=== PATIENT | male | born 1960 | race Caucasian/White ===

== ENCOUNTER 2023-03-02 10:38 | Outpatient (REF) | payer BC, SELFPAY ==
[2023-03-02 11:48] LABS: Prothrombin Time 12.6 SEC (11.1-13.3)
[2023-03-02 11:51] LABS: Partial Thromboplastin Time 30.6 SEC (26.0-36.4)
[2023-03-02 12:46] LABS: Alanine Aminotransferase 16 U/L (0-40); Albumin Level 4.8 g/dL (3.5-5.0); Alkaline Phosphatase 75 U/L (39-117); Aspartate Amino Transferase 21 U/L (5-37); Bilirubin Direct 0.3 mg/dL (0.0-0.5); Bilirubin Total 0.8 mg/dL (0.0-1.0); Total Protein 7.5 g/dL (6.5-8.0)
[2023-03-02 12:48] LABS: HBS Num1 0.09 mIU/mL (0-7.99); HBc Num1 0.13 S/CO (0.00-0.79); HBsAGNum1 0.61 S/CO (0.00-0.99); Hepatitis A Antibody IgM 0.47 Index (0-0.79); Hepatitis B Core Antibody Nonreactive (Nonreactive); Hepatitis B Surface Antigen Negative (Negative); ~HepC Num1 14.08 S/CO (0.00-0.79); ~Hepatitis A Antibody IgM Nonreactive (Nonreactive); ~Hepatitis B Surface Antibody NONREACTIVE (Nonreactive); ~Hepatitis C Antibody Reactive (Nonreactive)
[2023-03-04 11:49] LABS: Alpha Fetoprotein 2.4 ng/mL (<6.1)
== END 2023-03-02 10:39 | disposition home or self-care (01) ==
LOC: HO.HHCL 10:38
PROVIDERS: Visit Provider Registered Nurse
DX: K74.60 Unspecified cirrhosis of liver (principal); D69.6 Thrombocytopenia, unspecified
CPT/HCPCS: 36415; 80076; 82105; 85610; 85730; 86704; 86706; 86709; 86803; 87340

== ENCOUNTER 2023-04-13 07:41 | Outpatient (REF) | payer BC, SELFPAY ==
--- NOTE | ~2023-04-13 | US_ITS ---
EXAMINATION: US COMPLETE ABDOMEN WITH LIVER ELASTOGRAPHY CLINICAL INFORMATION: COMPARISON: None available. TECHNIQUE: Real-time imaging of the abdominal viscera. Noninvasive ultrasound liver fibrosis assessment is performed using Manav ElastPQ point quantification shear wave elastography (2D-SWE) with a C5-2 MHz transducer. Multiple elastography samples are obtained. FINDINGS: PANCREAS: Normal. The visualized pancreatic head and body are normal in appearance. The remainder of the pancreas is obscured from visualization by the overlying bowel gas. ABDOMINAL AORTA: The visualized proximal, middle, and distal aortic segments are normal in caliber. INFERIOR VENA CAVA: Visualized portions are normal. LIVER: The liver demonstrates normal size, contour and heterogeneous, coarse echogenicity. No focal lesion or intrahepatic biliary duct dilatation. The right lobe measures 13.2 cm in length. The left lobe measures 9.3 cm in length. Portal flow is towards the liver (hepatopetal). The splenic vein is tortuous and prominent. Shear wave liver elastography median stiffness is 1.63 m/s (reference: normal median stiffness is 1.3 m/s or less). IQR/median stiffness to assess sampling precision is 0.11 (reference: good quality data set is IQR/median stiffness of 0.15 or less). GALLBLADDER: Normal. The gallbladder is physiologically distended without evidence of stones, sludge, polyps, wall thickening or pericholecystic fluid. COMMON BILE DUCT: Visualization limited. Normal in caliber measuring 0.4 cm in diameter. RIGHT KIDNEY: Normal. No hydronephrosis. No renal calculi or focal parenchymal lesions. The kidney measures 9.8 cm in maximum dimension. LEFT KIDNEY: Normal. No hydronephrosis. No renal calculi or focal parenchymal lesions. The kidney measures 10.7 cm in maximum dimension. SPLEEN: No focal finding. The spleen measures 16.1 cm in maximum dimension. FREE FLUID: None. US/US abdomen comp w elastography IMPRESSION: 1. There is generalized increase in hepatic echotexture, consistent with the provided history of cirrhosis. No focal hepatic mass or intrahepatic biliary dilatation is seen. 2. Liver elastography: In the absence of other known clinical signs, measurements rule out compensated advanced chronic liver disease. If there are known clinical signs, further testing may be needed for confirmation. 3. There is splenomegaly. REFERENCE: Society of Radiologists in Ultrasound Liver Stiffness Thresholds (2020): LIVER STIFFNESS THRESHOLDS: *Liver Stiffness equal or less than 1.3 m/s: High probability of being normal. *Liver Stiffness less than 1.7 m/s: In the absence of other known clinical signs, rules out compensated advanced chronic liver disease. *Liver Stiffness 1.7-2.1 m/s: Suggestive of compensated advanced chronic liver disease but need further test for confirmation. *Liver Stiffness over 2.1 m/s: Rules in compensated advanced chronic liver disease. *Liver Stiffness over 2.4 m/s: Suggestive of clinically significant portal hypertension. QUALITY OF DATA SET: *IQR/Median value equal or less than 0.15 implies a quality data set. *IQR/Median value over 0.15 implies a poor quality data set. SIGNIFICANT CHANGE FROM PRIOR EXAM: Significant change if liver stiffness measurement is 10% or greater from prior exam. OTHER CONSIDERATIONS: The stage of liver fibrosis may be overestimated in the setting of acute hepatitis, liver inflammation, elevated liver function tests, hepatic vascular congestion, obstructive cholestasis, non-fasting state, and infiltrative diseases such as amyloidosis and lymphoma. In some patients with NAFLD, the liver stiffness thresholds for compensated advanced chronic liver disease may be lower. In causes other than viral hepatitis and NAFLD, liver stiffness thresholds are not well established.
== END 2023-04-13 07:42 | disposition home or self-care (01) ==
LOC: HO.US 07:41
PROVIDERS: PCP Registered Nurse; Visit Provider Registered Nurse
DX: K74.60 Unspecified cirrhosis of liver (principal); D72.810 Lymphocytopenia
CPT/HCPCS: 76705; 76981

== ENCOUNTER 2023-05-02 14:10 | Outpatient (REF) | payer BC, SELFPAY ==
[2023-05-02 14:28] LABS: MANUAL DIFF FLAG NO
[2023-05-02 14:47] LABS: Basophils Percent Auto 0.3 % (0-2); Hemoglobin 14.5 g/dl (14.0-18.0); Imm Gran Abs Auto 0.02 X10*3/uL (0.00-0.03); Imm Gran Pct Auto 0.5 % (0.0-0.4); Lymphocytes Absolute Auto 0.6 X10*3/uL (1.2-4.9); Mean Corpuscular HGB Conc 33.7 g/dl (31.0-36.0); Mean Corpuscular Hemoglobin 28.7 pg (27.0-33.0); Mean Corpuscular Volume 85.1 fL (80.0-98.0); Monocytes Absolute Auto 0.3 X10*3/uL (0.1-1.2); Monocytes Percent Auto 7.8 % (2-11); Neutrophils Absolute Auto 2.9 x10*3/uL (2.0-8.3); Neutrophils Percent Auto 75.4 % (45-73); Red Blood Count 5.05 X10*6/uL (4.60-5.80); Red Cell Distribution Width 13.2 % (11.0-16.0); White Blood Count 3.9 X10*3/uL (4.8-10.8)
[2023-05-02 15:19] LABS: Platelet Count 96 X10*3/uL (160-400)
[2023-05-02 15:20] LABS: Mean Platelet Volume 9.8 fL (9.4-12.4)
[2023-05-02 15:21] LABS: Alanine Aminotransferase 16 U/L (0-40); Albumin Level 4.9 g/dL (3.5-5.0); Alkaline Phosphatase 78 U/L (39-117); Aspartate Amino Transferase 23 U/L (5-37); Bilirubin Direct 0.3 mg/dL (0.0-0.5); Bilirubin Total 0.8 mg/dL (0.0-1.0); Iron 106 mcg/dL (45-160); Percent Iron Saturation 33 % (15-50); Total Iron Binding Capacity 322 mcg/dL (228-428); Total Protein 7.6 g/dL (6.5-8.0); Unsaturated Iron Binding 216 ug/dL
[2023-05-04 17:18] LABS: HCV RNA PCR Qn <1.18 NOT DETECTED Log IU/mL (NOT DETECTED); HCV RNA PCR Qn <15 NOT DETECTED IU/mL (NOT DETECTED)
[2023-05-05 12:44] LABS: Mitochondrial Antibodies NEGATIVE (NEGATIVE)
[2023-05-05 22:23] LABS: Smooth Muscle Antibody <20 U (<20)
[2023-05-06 15:47] LABS: FIB-ALT 15 U/L (9-46); FIB-Alpha-2-Macroglobulin 351 mg/dL (106-279); FIB-Apolipoprotein A1 159 mg/dL (94-176); FIB-GGT 32 U/L (3-70); FIB-Haptoglobin 105 mg/dL (43-212); FIB-Total Bilirubin 0.7 mg/dL (0.2-1.2); Liver Fibrosis Score 0.61; Liver Fibrosis Stage F3; Nec Inflam Act Grade A0; Nec Inflam Act Score 0.08
[2023-05-07 11:49] LABS: Anti Nuclear Antibody Screen POSITIVE (NEGATIVE)
== END 2023-05-02 14:11 | disposition home or self-care (01) ==
LOC: HO.LAB 14:10
PROVIDERS: Visit Provider Internal Medicine Gastroenterology
DX: K74.60 Unspecified cirrhosis of liver (principal)
CPT/HCPCS: 36415; 80076; 81596; 83540; 85025; 86015; 86038; 86039; 86381; 87522

== ENCOUNTER 2023-05-25 11:54 | Day surgery (SDC) | payer BC, SELFPAY ==
--- NOTE | 2023-05-24 10:20 | P.CONAN_ITS ---
HPI - Anesthesia Eval Consult details Narrative: 63yo M for Upper Endoscopy Cirrhosis and Hep C [facility] Past Medical History Medical History (Updated 05/24/23 @ 08:06 by Madelyn Howard, RN) Hepatic cirrhosis Hepatitis C Surgical History Surgical History (Updated 05/24/23 @ 08:06 by Madelyn Howard, RN) History of esophagogastroduodenoscopy (EGD) Hx of hernia repair Meds Allergies Allergy/AdvReac Type Severity Reaction Status Date / Time No Known Allergies Allergy Verified 05/24/23 08:07 Home Medications Medication Instructions Recorded Confirmed Last Taken Type No Known Home Meds 05/24/23 05/24/23 Unknown History Exam Pertinent Lab Results Pertinent Lab Results: Laboratory Tests 05/02/23 14:25 WBC 3.9 L Hgb 14.5 Hct 43.0 Plt Count 96 L Narrative Narrative: US abdomen comp w elastography 03/2023 IMPRESSION: 1. There is generalized increase in hepatic echotexture, consistent with the provided history of cirrhosis. No focal hepatic mass or intrahepatic biliary dilatation is seen. 2. Liver elastography: In the absence of other known clinical signs, measurements rule out compensated advanced chronic liver disease. If there are known clinical signs, further testing may be needed for confirmation. 3. There is splenomegaly. Assessment and Plan Assessment Anesthesia Assessment: Chart Reviewed
[2023-05-25 12:06] VITALS: BMI 23.6
[2023-05-25 12:30] VITALS: BP 142/78; PULSE 76; RESP 16; TEMP 36.4; O2SAT 98
[2023-05-25] MEDS: Lactated Ringers 1,000 ML 100 ML IVCONT (12:31)
--- NOTE | 2023-05-25 12:32 | P.CONAN_ITS ---
[facility] Past Medical History Medical History Hepatic cirrhosis Hepatitis C Functional capacity: independent ambulation Family History Family history of problems with anesthesia: No Surgical History Surgical History History of esophagogastroduodenoscopy (EGD) Hx of hernia repair History of Problems with Anesthesia: No Social History Social History Patient Tobacco Use Status: Never used Tobacco Use of substances other than those prescribed or required for medical reasons: No Are you DNR?: No Advance Directives: No Advance Directives Information Provided: Yes Meds Allergies Allergy/AdvReac Type Severity Reaction Status Date / Time No Known Allergies Allergy Verified 05/25/23 12:13 Active Medications: Current Medications Lactated Ringer's (Lr) 1,000 mls @ 100 mls/hr IVCONT .Q10H ANTONETTE Last Admin: 05/25/23 12:31 Dose: 100 mls/hr Home Medications Medication Instructions Recorded Confirmed Last Taken Type No Known Home Meds 05/24/23 05/24/23 Unknown History Exam Height,Weight and Vital Signs: Height 5 ft 8 in Weight 70.534 kg Last Vital Signs Temp 97.5 F 05/25/23 12:30 Pulse 76 05/25/23 12:30 Resp 16 05/25/23 12:30 BP 142/78 H 05/25/23 12:30 Pulse Ox 98 05/25/23 12:30 O2 Del Method Room Air 05/25/23 12:30 Airway Mallampati Class: III TM Dist: >3cm Neck ROM: Full Heart: RRR Lungs: CTA Assessment and Plan Assessment Anesthesia Assessment: Anesthesia Plan Discussed Final Anesthetic Review Family History of Problems with Anesthesia: No History of Problems with Anesthesia: No ASA Class: III Final Preanesthetic Review: Meds/Allgs Chart Reviewed, Consent Obtained/Reviewed and Anes Risks/Benef Reviewed Patient Risk: Intermediate Procedure Risk: Low Anesthetic Plan Anesthetic Plan: MAC: Disposition: Standard PACU
--- NOTE | 2023-05-25 12:55 | MHC.SHP ---
Pre-Procedural Eval Section A Date of Service: 05/25/23 The patient is an INPATIENT: No Changes since office visit: No Cold of Flu in the past 2 weeks, No New Medical Problems, No Changes in Medication and No Patient answered all questions The History & Physical has been completed within 30 days and I have reviewed it.: Yes Section B Chief Complaint: Unspecified cirrhosis of liver Allergies: Allergies Allergy/AdvReac Type Severity Reaction Status Date / Time No Known Allergies Allergy Verified 05/25/23 12:13 Plan I have reviewed the history and physical and performed a pertinent physical examination on my patient. No changes have occurred unless specified. Time Spent With Patient Time: Total time managing care of this patient today ____ minutes.
[2023-05-25 13:18] VITALS: BP 115/78; PULSE 96; RESP 16; TEMP 36.3; O2SAT 97
--- NOTE | 2023-05-25 13:29 | HO.POSTANES ---
Post Anesthesia Evaluation Post Anesthesia Evaluation Date of Service: 05/25/23 Vital Signs: Vital Signs Temp Pulse Resp BP Pulse Ox O2 Del Method O2 Flow Rate 05/25/23 13:18 97.3 F 96 16 115/78 97 Simple Mask 4 05/25/23 12:30 97.5 F 76 16 142/78 H 98 Room Air Anesthesia: Monitored Mental Status: Awake Pain Control: Satisfactory Nausea/Vomiting: None Hydration: Adequate Anesthesia-Related Issues: No Anes. Related Issues
[2023-05-25 13:33] VITALS: BP 138/99; PULSE 91; RESP 16; TEMP 36.2; O2SAT 99
--- NOTE | 2023-05-25 13:50 | OP_ITS ---
DATE OF SERVICE: 05/25/2023 SURGEON: Jairo Mcdonald MD INDICATIONS: Cirrhosis. PREOPERATIVE DIAGNOSIS: POSTOPERATIVE DIAGNOSIS: PROCEDURE PERFORMED: Upper endoscopy with biopsy. ESTIMATED BLOOD LOSS: COMPLICATIONS: ANESTHESIA: Monitored anesthesia care. ASSISTANTS: SPECIMENS: DESCRIPTION OF PROCEDURE: A history and physical was performed. The risks and benefits of the procedure were explained to the patient. Informed consent was obtained. The patient was placed in the left lateral decubitus position. The Olympus video gastroscope was introduced into the esophagus, stomach, and duodenum. Examination was performed. The scope was removed. He tolerated the procedure well and was returned to the recovery area in stable condition. FINDINGS: Esophagus: There was a single grade 1 esophageal varix extending from the EG junction at 42 cm up to about 30 cm. The varix disappeared with insufflation. There were no stigmata of recent hemorrhage. Stomach: Stomach showed no evidence of masses, ulcers, or polyps. There were no gastric varices. There was no portal hypertensive gastropathy. Duodenum: The bulb and 2nd portion were normal. Antral biopsies were obtained from the stomach to evaluate for H pylori. IMPRESSION: 1. Cirrhosis. 2. Esophageal varices. RECOMMENDATION: 1. Follow up the biopsy results. 2. Repeat endoscopy for surveillance as per protocol. MD JALEN Pepe/DERRICK / [id number]
== END 2023-05-25 14:10 | disposition home or self-care (01) ==
PROVIDERS: PCP Registered Nurse; Visit Provider Internal Medicine Gastroenterology
PROC: 0DJ08ZZ Inspection of Upper Intestinal Tract, Via Natural or Artificial Opening Endoscopic (ICD-10-PCS; CPT 43235; principal; 2023-05-25 13:00)
DX: K74.60 Unspecified cirrhosis of liver (principal); I85.10 Secondary esophageal varices without bleeding; B19.20 Unspecified viral hepatitis C without hepatic coma
CPT/HCPCS: 43239; 88305; 88342; J2704

== ENCOUNTER 2023-06-22 17:48 | Outpatient (REF) | payer BC, SELFPAY | END 2023-06-22 17:49 | disposition home or self-care (01) | LOC: HO.CHCLNP 17:48 | PROVIDERS: Visit Provider Family Medicine | DX: Z11.52 Encounter for screening for COVID-19 (principal); J06.9 Acute upper respiratory infection, unspecified | CPT/HCPCS: 0241U ==

== ENCOUNTER 2024-02-16 11:57 | Outpatient (REF) | payer BC, SELFPAY ==
--- NOTE | ~2024-02-16 | CT_ITS ---
EXAMINATION: CT ABDOMEN AND PELVIS WITH CONTRAST CLINICAL INFORMATION: Abdominal pain. COMPARISON: Abdominal ultrasound 04/13/2023. TECHNIQUE: Multidetector volumetric images were obtained from the superior aspect of the liver through the pubic symphysis following administration 85 mL of Omnipaque 350 intravenous contrast. Sagittal and coronal reformatted images were obtained on the technologist's workstation. Oral contrast: Yes This CT examination was performed using dose optimization techniques as appropriate, variously including the following: *Automated exposure control *Adjustment of mA and/or kV according to patient size (this includes techniques or standardized protocols for targeted exams where dose is matched to indication/reason for exam; i.e. extremities or head) *Use of iterative reconstruction technique DLP: 317 mGy-cm FINDINGS: LUNG BASES: No suspicious lung nodules. LIVER, GALLBLADDER, AND BILIARY TREE: Cirrhotic appearing liver. No discrete liver mass on single phase imaging. No biliary ductal dilatation. The gallbladder is unremarkable. PANCREAS: No discrete pancreatic mass. No pancreatic ductal dilatation. SPLEEN: The spleen is enlarged measuring 13.7 cm. ADRENAL GLANDS: No adrenal mass. KIDNEYS AND URETERS: The kidneys are normal in size, shape, and attenuation. No hydronephrosis, hydroureter, or calculi seen. No perinephric stranding. BLADDER: Unremarkable. GASTROINTESTINAL TRACT: The small and large bowel are normal in caliber. No acute inflammatory changes are seen. Mild colonic diverticula. ABDOMINAL WALL: Relatively symmetric bilateral soft tissue masses just above the inguinal canals bilaterally and deep to the abdominal wall. These measure 2.5 x 2.0 x 1.8 cm on the right and 2.6 x 1.9 x 2.1 cm on the left. LYMPH NODES: No demonstrable adenopathy. VASCULAR: The portal vein is patent. The umbilical vein is recanalized. The splenic vein is dilated. There are gastroesophageal varices. The abdominal aorta is normal in caliber. 2.6 cm infrarenal abdominal aortic aneurysm, 1.5X the proximal normal segment of 1.8 cm. PELVIC VISCERA: Unremarkable. OSSEOUS STRUCTURES: Degenerative changes in the spine. No destructive osseous lesions. CT/CT abdomen pelvis w IV con IMPRESSION: Relatively symmetric bilateral soft tissue masses just above the inguinal canals bilaterally. Correlate clinically for any history of inguinal hernia repair or other surgery as this could potentially be a foreign body reaction. No surgical clips or obvious surgical seen. The symmetry would favor a nonneoplastic process, though one cannot be entirely excluded. Clinical correlation is necessary. If there is no clinical explanation for the imaging findings, tissue diagnosis is recommended. Cirrhosis with portal hypertension, splenomegaly, gastroesophageal varices. Second opinion from Dr. Hemal Ho, who concurs 12/15 PM 02/17/2024. Fleischner guidelines were followed. Electronically signed by: Marshal Hubbard MD 02/17/2024 12:16 PM EDT
[2024-02-16] MEDS: Barium Sulfate Oral (Vanilla) 450 ML ORAL.SUSP 900 ML PO (13:51)
[2024-02-16] MEDS: iohexoL 350 MG/ML 100 ML INFUS..BTL 85 ML IV (13:52)
[2024-02-16 14:39] LABS: Creatinine POC 0.7 mg/dL (0.5-1.4); GFR POC > 60
== END 2024-02-16 11:58 | disposition home or self-care (01) ==
LOC: HO.CT 11:57
PROVIDERS: PCP Registered Nurse; Visit Provider Registered Nurse
DX: R10.9 Unspecified abdominal pain (principal)
CPT/HCPCS: 74177; 82565; Q9967

== ENCOUNTER 2025-03-01 09:37 | Outpatient (REF) | payer BC, SELFPAY ==
--- OUTSIDE RECORDS SUMMARY | 2025-03-01 08:30 | XMS_ITS | Encounter Summary ---
Author Organization [employer] Address [address] [facility] [place] [id number] Care Team Providers Care Developmental Writing Instructor Name Role Phone Kim Ragland Primary Care Provider Jairo Mcdonald MD Unavailable [phone] Encounter Details Date Type Department Care Team (Late st Contact Info) Description 03/01/2025 8:30 AM EDT Office Visit [facility]S [address] [place] [address] Kim Ragland FNP [address] [place] [address] Lymphopenia (Primary Dx); Healthcare maintenance Social History Tobacco Use Types Packs/Day Years Used Date Smoking Tobacco: Former Cigarettes Passive Smoke Exposure: Never Smokeless Tobacco: Never Alcohol Use Standard Drinks/Week Comments Never 0 (1 standard drink = 0.6 oz pur e alcohol) Depression Answer Date Recorded Patient Health Questionnaire-9 Score 1 03/01/2025 Patient Health Questionnaire-9 Score 1 03/01/2025 Last PHQ-9: Questionnaire Data Not on file 0 03/01/2025 Housing Stability Answer Date Recorded What is your housing situation today? I have zhane shah 01/02/[address] you li ve. Do you have problems with any of the following? None of the above 01/02/2024 Food Insecurity Answer Date Recorded Within the past 12 months, y ou worried that your food would run out before you got money to buy more: Never True 01/02/2024 Within the past 12 months,th e food you bought just didn't last and you didn't have enough money to get more: Never True Transportation Answer Date Recorded In the past 12 months, has l ack of transportation kept you from medical appts, meetings, work or from getting things needed for daily living? No 01/02/2024 Utilities Answer Date Recorded In the past 12 months, has t he electric, gas, oil or water company threatened to shut off services in your home? No 01/02/2024 Depression Answer Date Recorded Patient Health Questionnaire-2 Score 0 03/01/2025 Internet Access Answer Date Recorded Internet Access Q1 Yes 02/17/2024 Internet Access Q2 Not on file 02/17/2024 Sex and Gender Information Value Date Recorded Sex Assigned at Male 09/24/2022 12:50 PM EDT Legal Sex Male 12:50 PM EDT Gender Identity Male 09/24/2022 12:50 PM EDT Sexual Orientation Straight 09/24/2022 12 :50 PM EDT documented as of this encounter Last Filed Vital Signs Vital Sign Reading Time Taken Comments Blood Pressure 140/80 03/01/2025 8:42 AM EDT Pulse 64 03/01/2025 8:42 AM EDT Temperature 36.6 C (97.9 F) 03/01/2025 8:42 AM EDT Respiratory Rate 16 03/01/2025 8:42 AM EDT Oxygen Saturation - - Inhaled Oxygen Concentration - - Weight 72.1 kg (159 lb) 03/01/2025 8:42 AM EDT Height - - Body Mass Index 24.18 11/02/2024 1:41 PM EDT documented in this encounter Functional Status * Over the past 2 weeks, how often have you been bothered by any of the following problems? Question Answer Date of Assessment Author Patient Health Questionnaire-2 Score 0 02/18 9:17 AM EDT Irma Cho MA * Little interest or pleasure in doing things Answer Date of Assessment Author Not at all 03/01/2025 9:17 AM EDT Kaila Cho MA * Feeling down, depressed, or hopeless Answer Date of Assessment Author Not at all 03/01/2025 9:17 AM ABDELRAHMANT Kaila Cho MA * Trouble falling or staying asleep, or sleeping too much Answer Date of Assessment Author Several days 03/01/2025 9:17 AM EDT Kaila Cho MA * Feeling tired or having little energy Answer Date of Assessment Author Not at all 03/01/2025 9:17 AM EDT Kaila Cho MA * Poor appetite or overeating Answer Date of Assessment Author Not at all 03/01/2025 9:17 AM EDT Kaila Cho MA * Feeling bad about yourself - or that you are a failure or have let yourself or your family down Answer Date of Assessment Author Not at all 03/01/2025 9:17 AM EDT Kaila Cho MA * Trouble concentrating on things, such as reading the newspaper or watching television Answer Date of Assessment Author Not at all 03/01/2025 9:17 AM EDT Kaila Cho MA * Moving or speaking so slowly that other people could have noticed? Or the opposite - being so fidgety or restless that you have been moving around a lot more than usual. Answer Date of Assessment Author Not at all 03/01/2025 9:17 AM EDT Kaila Cho MA * Thoughts that you would be better off or hurting yourself in some way Answer Date of Assessment Author Not at all 03/01/2025 9:17 AM EDT Kaila Cho MA * Patient Health Questionnaire-9 Score Answer Date of Assessment Author 1 03/01/2025 9:17 AM EDT Kaila Cho MA * How difficult have these problems made it for you to do your work, take care of things at home, or get along with other people? Answer Date of Assessment Author Not difficult at all 03/01/2025 9:17 AM EDT Irma Pacheco MA documented as of this encounter Patient Instructions * Patient Instructions* YAMIL Garcia - 03/01/2025 8:30 AM EDT 1) [facility] 2) comenzar nueva medicaci??n 3) Michell la presi??n arterial y el pulso 3 veces por semana y cuando presente s??ntomas 4) Dominga de seguimiento en 6 semanas documented in this encounter Plan of Treatment Upcoming Encounters Date Type Department Care Team (Late st Contact Info) Description 04/22/2025 10:15 AM EST Office Visit [facility] [address] [place] [address] Kim Ragland FNP [address] [place] [address] Scheduled Orders Name Type Priority Associated Diagnoses Orde r Schedule Lipid Panel, Standard Lab Routine Healthcare maintenance Expected: 03/01/2025 (Approximate), Expires: 03/01/2026 Hemoglobin A1c Lab Routine Healthcare maintenance Expected: 03/01/2025 (Approximate), Expires: 03/01/2026 TSH with Reflex to Free T4 Lab Routine Healthcare maintenance Expected: 03/01/2025 (Approximate), Expires: 03/01/2026 Comprehensive Metabolic Panel Lab Routine Healthcare maintenance Expected: 03/01/2025 (Approximate), Expires: 03/01/2026 CBC auto differential Lab Routine Lymphopenia Healthcare maintenance Expected: 03/01/2025, Expires: 03/01/2026 Pathologist Review Of Peripheral Smear Lab Routine Lymphopenia Expected: 03/01/2025 (Approximate), Expires: 03/01/2026 Hepatitis C Antibody with Reflex to HCV, RNA, Quantitative, Real-Time PCR Lab Routine Healthcare maintenance Expected: 03/01/2025, Expires: 03/01/2026 Hepatitis B Core Antibody, Total Lab Routine Healthcare maintenance Expected: 03/01/2025 (Approximate), Expires: 03/01/2026 Hepatitis B Surface Antibody, Qualitative Lab Routine Healthcare maintenance Expected: 03/01/2025 (Approximate), Expires: 03/01/2026 Hepatitis B surface antigen, EIA Lab Routine Healthcare maintenance Expected: 03/01/2025 (Approximate), Expires: 03/01/2026 documented as of this encounter Visit Diagnoses Diagnosis Lymphopenia- Primary Lymphocytopenia Healthcare maintenance documented in this encounter Additional Health Concerns Assessment Noted Time PHQ-9 Depression Total Score: 1 03/01/20 25 9:17 AM EDT documented as of this encounter Care Teams Developmental Writing Instructor Relationship Specialty Start Date End Date Kim Ragland FNP [address] [place] [phone] PCP - General Family Medicine 09/24/22 Jairo Mcdonald MD [address] [place] [phone] Gastroenterology 11/03/24 documented as of this encounter
--- OUTSIDE RECORDS SUMMARY | 2025-03-01 10:44 | XMS_ITS | Encounter Summary ---
Author Organization [employer] Address [address] [facility] [address] [place] [address] Care Team Providers Care Acid Changer Name Role Phone Kim Ragland Primary Care Provider [phone] Jairo Mcdonald MD Unavailable [phone] Reason for Visit * Reason Onset Date Comments chart prep 02/28/2025 Encounter Details Date Type Department Care Team ([facility] Contact Info) Description 02/28/2025 Telephone C [facility] [address] [place] [address] Kim Ragland FNP [address] [place] [address] chart prep Social History Tobacco Use Types Packs/Day Years [...] PM EDT documented as of this encounter Miscellaneous Notes * Telephone Encounter - Irma Cho MA - 02/28/2025 10:05 AM EDT Chart Prep Labs: not done Images: done Referrals: complete Vaccines due: Covid, Flu, PCV20, Tdap, Hep A, RSV, and Zoster Screenings: colonoscopy Overdue care gaps: SBIRT, PHQ-9, and Disability screen documented in this encounter Plan of Treatment Upcoming Encounters Date Type Department Care Team (Late st Contact Info) Description 04/22/2025 10:15 AM EST Office Visit [facility] MED & PEDS [address] [place] [address] Kim Ragland FNP [address] [place] [address] documented as of this encounter Visit Diagnoses Not on filedocumented in this encounter Additional Health Concerns Assessment Noted Time PHQ-9 Depression Total Score: 0 01/02/20 24 10:29 AM EDT documented as of this encounter Care Teams Acid Changer Relationship Specialty Start Date End Date Kim Ragland FNP [address] [place] [address] PCP - General Family Medicine 09/24/22 Jairo Mcdonald MD [address] [place] [address] [address] [place] [phone] Gastroenterology 11/03/24 documented as of this encounter
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
--- OUTSIDE RECORDS SUMMARY | 2025-03-01 10:44 | XMS_ITS | Encounter Summary ---
Author Organization [employer] Address [address] [facility] [address] [place] [address] Care Team Providers Care Speech Language Pathologist Prn Name Role Phone Kim Ragland YAMIL Primary Care Provider [phone] Jairo Mcdonald MD Unavailable [phone] Encounter Details Date Type Department Care Team (Latest Contact Info) Description 03/01/2025 Travel Social History Tobacco Use Types Packs/Day Years [...] PM EDT documented as of this encounter Functional Status * Over the past 2 weeks, how often have you been bothered by any of the following problems? Question Answer Date of Assessment Author Patient Health Questionnaire-2 Score 0 02/18 9:17 AM Irma Villareal MA * Little interest or pleasure in doing things Answer Date of Assessment Author Not at all 03/01/2025 9:17 AM Kaila Villareal MA * Feeling down, depressed, or hopeless Answer Date of Assessment Author Not at all 03/01/2025 9:17 AM Kaila Villareal MA * Trouble falling or staying asleep, or sleeping too much Answer Date of Assessment Author Several days 03/01/2025 9:17 AM Kaila Villareal MA * Feeling tired or having little energy Answer Date of Assessment Author Not at all 03/01/2025 9:17 AM Kaila Villareal MA * Poor appetite or overeating Answer Date of Assessment Author Not at all 03/01/2025 9:17 AM Kaila Villareal MA * Feeling bad about yourself - or that you are a failure or have let yourself or your family down Answer Date of Assessment Author Not at all 03/01/2025 9:17 AM Kaila Villareal MA * Trouble concentrating on things, such as reading the newspaper or watching television Answer Date of Assessment Author Not at all 03/01/2025 9:17 AM Kaila Villareal MA * Moving or speaking so slowly that other people could have noticed? Or the opposite - being so fidgety or restless that you have been moving around a lot more than usual. Answer Date of Assessment Author Not at all 03/01/2025 9:17 AM Kaila Villareal MA * Thoughts that you would be [...] [place]co [place] documented as of this encounter Plan of Treatment Upcoming Encounters Date Type Department Care Team (Late st Contact Info) Description 04/22/2025 10:15 AM EST Office Visit [facility] [address] [place] [address] Kim Ragland FNP [address] [place] [address] documented as of this encounter Visit Diagnoses Not on filedocumented in this encounter Additional Health Concerns Assessment Noted Time PHQ-9 Depression Total Score: 1 03/01/20 9:17 AM EDT documented as of this encounter Care Teams Speech Language Pathologist Prn Relationship Specialty Start Date End Date Kim Ragland FNP [address] [place] [id number] PCP - General Family Medicine 09/24/22 Jairo Mcdonald MD [address] [place] [address] [place] [phone] Gastroenterology 11/03/24 documented as of this encounter
--- OUTSIDE RECORDS SUMMARY | 2025-03-01 10:44 | XMS_ITS | Patient Health Record ---
Author Organization Adalberto Hartley [facility] Address [address] [place], [place] [address] Care Team Providers Care Diesel Service Journeyman Name Role Phone Adalberto Anaya Primary Care Provider Maude Munguia Unavailable Unavailable Reason For Referral No Information Plan Of Treatment No Information Insurance Providers Payer Name Payer Address Payer Phone Subscriber Number Group Number Insured Name Patient Relationship to Insured Coverage Start Date Coverage End Date [facility] [address] [place] [id number] BRETT BAIN Self - patient is the insured
--- OUTSIDE RECORDS SUMMARY | 2025-03-01 10:45 | XMS_ITS | Patient Health Record ---
Author Organization [place] [employer] [facility] Address [address] [place] [phone] Care Team Providers Care Global Account Manager Name Role Phone Maude Munguia Primary Care Provider Unavailab Baldomero Toribio Unavailable [phone] Reason For Referral No Information Medications Medication SIG (Take, Route, Frequency, Duration) Notes Start Date End Date Status Suprep Bowel Prep 2 Bottles as directed Orally; Duration: 2 days 03/03/2016 Not-Taking Social History Tobacco Use: Social History Observation Description Date Details (start date - stop date) Former Smoker NA - NA Tobacco Use/Smoking Question Answer Notes Are you a former smoker How long has it been since you last smoked? > 10 years Alcohol Screen (Audit-C) Question Answer Notes Did you have a drink containing alcohol in the p ast year? No Points 0 Interpretation Negative Problems Problem Type SNOMED Code ICD Code Onset Dates Problem Status W/U Status Risk Notes Problem Cirrhosis of liver (19980308) Other cirrhosis of liver (K74.69) Active confirmed Problem Hepatitis C (63325335) Hepatitis C (B19.20) Active confirmed Problem Screening for malignant neoplasm of colon (706323789) Screen for colon cancer (Z12.11) Active confirmed Plan Of Treatment Pending Test Test Name Order Date ESOPHAGOGASTRODUODENOSCOPY 07/20/2017 COLONOSCOPY (Use this One) 03/03/2016 HCV FibroSURE 03/03/2016 ALPHA FETOPROTEIN TUMOR MARKER 6 DRUG SCREEN URINE PANEL NO RFX 6 CP CBC (w/ auto diff) 03/03/2016 CP Comp Metabolic Panel (CMP) 03/03/2016 Hepatitis C Viral RNA, Quant, Real Time PCR 03/03/2016 Hepatitis C Virus Genotype, LiPA 016 Hepatitis Panel 03/03/2016 Insurance Providers Payer Name Payer Address Payer Phone Subscriber Number Group Number Insured Name Patient Relationship to Insured Coverage Start Date Coverage End Date [employer] [place] [address] [place] [phone] [id number] [facility] [place] Self - patient is the insured Medical (General) History Medical History History ICD Code dx w/ hep c 1999 hernia Surgical History Surgery Date(Month/Year) colonoscopy - 05/04/16 hernia - [facility] 02/2017 Hospitalization History Reason Date(Month/Year) same as above
--- OUTSIDE RECORDS SUMMARY | 2025-03-01 10:46 | XMS_ITS | Encounter Summary ---
Author Organization [email or web address] Address [address] [place] [address] Care Team Providers Care Consulting Systems Engineer Name Role Phone Kim Ragland Primary Care Provider [phone] Jairo Mcdonald MD Unavailable [phone] Reason for Visit * Reason Onset Date Comments Created in error 02/01/2024 Encounter Details Date Type Department Care Team ([facility] Contact Info) Description 02/01/2024 Telephone [facility] [address] [place] [address] Kim Ragland FNP [address] [place] [address] Created in error Social History Tobacco Use Types Packs/Day Years Used Date Smoking Tobacco: Former Cigarettes Passive Smoke Exposure: Never Smokeless Tobacco: Never Alcohol Use Standard Drinks/Week Comments Never 0 (1 standard drink = 0.6 oz pur e alcohol) Depression Answer Date Recorded Patient Health Questionnaire-9 Score 0 01/02/2024 Patient Health Questionnaire-9 Score 0 01/02/2024 Last PHQ-9: Questionnaire Data Not on file 0 01/02/2024 Housing Stability Answer Date Recorded What is [...] Date Recorded Patient Health Questionnaire-2 Score 0 01/02/2024 Sex and Gender Information Value Date Recorded Sex Assigned at Male 09/24/2022 12:50 PM EDT Legal Sex Male 12:50 PM EDT Gender Identity Male 09/24/2022 12:50 PM EDT Sexual Orientation Straight 09/24/2022 12 :50 PM EDT documented as of this encounter Plan of Treatment Upcoming Encounters Date Type Department Care Team (Late st Contact Info) Description 04/22/2025 10:15 AM EST Office Visit [facility] [address] [place] [address] Kim Ragland FNP [address] [place] [address] documented as of this encounter Visit Diagnoses Not on filedocumented in this encounter Additional Health Concerns Assessment Noted Time PHQ-9 Depression Total Score: 0 01/02/20 24 10:29 AM EDT documented as of this encounter Care Teams Consulting Systems Engineer Relationship Specialty Start Date End Date Kim Ragland FNP [address] [place] [id number] PCP - General Family Medicine 09/24/22 Jairo Mcdonald MD [address] [place] [address] [place] [phone] Gastroenterology 11/03/24 documented as of this encounter
[2025-03-01 14:24] LABS: MANUAL DIFF FLAG NO
[2025-03-01 14:31] LABS: Hematocrit 38.9 % (42.0-52.0); Hemoglobin 13.3 g/dl (14.0-18.0); Imm Gran Abs Auto 0.01 X10*3/uL (0.00-0.03); Imm Gran Pct Auto 0.3 % (0.0-0.4); Lymphocytes Absolute Auto 0.7 X10*3/uL (1.2-4.9); Mean Corpuscular HGB Conc 34.2 g/dl (31.0-36.0); Mean Corpuscular Hemoglobin 29.0 pg (27.0-33.0); Mean Corpuscular Volume 84.9 fL (80.0-98.0); NRBC Abs Auto 0.000 X10*3/uL (0.0-0.012); NRBC Pct Auto 0.0 /100WBC (0.0-0.2); Red Blood Count 4.58 X10*6/uL (4.60-5.80); White Blood Count 3.4 X10*3/uL (4.8-10.8)
[2025-03-01 14:36] LABS: Platelet Count 94 X10*3/uL (160-400)
[2025-03-01 14:47] LABS: Hemoglobin A1C 127.3829 umol/L; Total Hemoglobin (HGBA1C) 3428.5727 umol/L
[2025-03-01 15:11] LABS: Alanine Aminotransferase 24 U/L (0-40); Albumin Level 4.8 g/dL (3.5-5.0); Alkaline Phosphatase 81 U/L (39-117); Anion Gap 10 (12-20); Aspartate Amino Transferase 41 U/L (5-37); Blood Urea Nitrogen 15 mg/dL (9-16); Calcium 8.8 mg/dL (8.4-10.2); Carbon Dioxide 29 mmol/L (22-29); Chloride 106 mmol/L (96-108); Cholesterol 154 mg/dL (<200); Estimated Glomerular Filt Rate > 60; HDL Cholesterol 38 mg/dL (>40); Potassium 4.2 mmol/L (3.3-5.1); Sodium 141 mmol/L (135-145); Total Protein 7.1 g/dL (6.5-8.0); Triglycerides 165 mg/dL (<150)
[2025-03-02 09:02] LABS: HBS Num1 > 1000.00 mIU/mL (0-7.99); HBc Num1 0.05 S/CO (0.00-0.79); HBsAGNum1 0.44 S/CO (0.00-0.99); Hepatitis B Surface Antigen Negative (Negative); ~HepC Num1 12.60 S/CO (0.00-0.79); ~Hepatitis B Surface Antibody REACTIVE (Nonreactive); ~Hepatitis C Antibody Reactive (Nonreactive)
[2025-03-05 22:59] LABS: HCV Log PCR <1.18 NOT DETECTED Log IU/mL (NOT DETECTED); HepC Viral Load <15 NOT DETECTED IU/mL (NOT DETECTED)
== END 2025-03-01 09:38 | disposition home or self-care (01) ==
LOC: HO.CHCLDS 09:37
PROVIDERS: Visit Provider Registered Nurse
DX: Z00.00 Encounter for general adult medical examination without abnormal findings (principal); Z13.6 Encounter for screening for cardiovascular disorders; Z13.1 Encounter for screening for diabetes mellitus; Z13.29 Encounter for screening for other suspected endocrine disorder; Z11.59 Encounter for screening for other viral diseases; D72.810 Lymphocytopenia
CPT/HCPCS: 36415; 80053; 80061; 83036; 84443; 85025; 86704; 86706; 86803; 87340; 87522

== ENCOUNTER → 2025-05-08 13:03 | Outpatient (BNV) | payer BC, SELFPAY | PROVIDERS: Visit Provider Internal Medicine | DX: D61.818 Other pancytopenia (principal); K74.69 Other cirrhosis of liver; D73.1 Hypersplenism | CPT/HCPCS: 99204 ==